=== PATIENT | male | born 1975 | race Caucasian/White ===

== ENCOUNTER 2018-11-27 06:45 | Emergency (ER) | payer MEDICAID, OTHER ==
[2018-11-27 07:17] VITALS: BP 158/96
--- NOTE | 2018-11-27 07:28 | EDM.PDOC ---
ED HPI GENERAL MEDICAL PROBLEM - General Chief Complaint: ENT Problem Stated Complaint: ABCESSED TOOTH Time Seen by Provider: 11/27/18 07:16 Source of Information: Reports: Patient History Limitations: Reports: No Limitations - History of Present Illness INITIAL COMMENTS - FREE TEXT/NARRATIVE: Patient presents with reports of a broken upper right molar and possible abscess. Reports that he broke the tooth several weeks ago and had tried to see the dentist. He was told they did not accept his insurance and was told to come to the ER. He denies fever, nausea, vomiting, chills. Some swelling to the left of his face. No other complaints today. Pain began yesterday but has improved today. Duration: Intermittent Location: Reports: Face Quality: Reports: Ache Severity: Mild Improves with: Reports: Medication Worsens with: Reports: Eating Associated Symptoms: Reports: No Other Symptoms Treatments DEDICATED [employer]: Reports: Acetaminophen, NSAIDS Left Upper Tooth/Teeth Pain Score (Numeric/FACES): 4 - Related Data Allergies Allergy/AdvReac Type Severity Reaction Status Date / Time hydrochlorothiazide Allergy Muscle Verified 11/27/18 07:07 Aches Home Meds: Home Meds metFORMIN HCl [Metformin HCl] 2,000 mg PO DAILY 07/14/16 [History] Gabapentin [Neurontin] 300 mg TID 11/27/18 [History] Insulin Glarg,Human.Rec.Analog [Lantus Solostar] 90 units DAILY 11/27/18 [ History] Liraglutide [Victoza] 1.8 mg DAILY 11/27/18 [History] amLODIPine Besylate [Amlodipine Besylate] 10 mg DAILY 11/27/18 [History] atorvaSTATin Calcium [Atorvastatin Calcium] 20 mg DAILY 11/27/18 [History] Past Medical History Cardiovascular History: Reports: High Cholesterol, Hypertension Neurological History: Reports: Neuropathy, Diabetic Endocrine/Metabolic History: Reports: Diabetes, Type II Social & Family History - Tobacco Use Smoking Status *Q: Current Every Day Smoker Years of Tobacco use: 26 Packs/Tins Daily: 1 - Recreational Drug Use Recreational Drug Use: No ED ROS ENT - Review of Systems Review Of Systems: See Below Constitutional: Reports: No Symptoms HEENT: Reports: Dental Pain Respiratory: Reports: No Symptoms Cardiovascular: Reports: No Symptoms Endocrine: Reports: No Symptoms GI/Abdominal: Reports: No Symptoms : Reports: No Symptoms Musculoskeletal: Reports: No Symptoms Skin: Reports: No Symptoms Neurological: Reports: No Symptoms Psychiatric: Reports: No Symptoms Hematologic/Lymphatic: Reports: No Symptoms Immunologic: Reports: No Symptoms ED EXAM, ENT - Physical Exam Exam: See Below Exam Limited By: No Limitations General Appearance: Alert, WD/WN, No Apparent Distress Eye Exam: Bilateral Eye: EOMI, Normal Inspection, PERRL Ears: Normal External Exam, Normal Canal, Hearing Grossly Normal, Normal TMs Nose: Normal Inspection, Normal Mucousa, No Blood Mouth/Throat: Dental Abcess (located at tooth fifteen) Head: Facial Swelling (left cheekbone) Neck: Normal Inspection, Supple, Non-Tender, Full Range of Motion Respiratory/Chest: No Respiratory Distress, Lungs Clear, Normal Breath Sounds, No Accessory Muscle Use, Chest Non-Tender Cardiovascular: Normal Peripheral Pulses, Regular Rate, Rhythm, No Edema, No Gallop, No JVD, No Murmur, No Rub GI/Abdominal: Normal Bowel Sounds, Soft, Non-Tender, No Organomegaly, No Distention, No Abnormal Bruit, No Mass Extremities: Normal Inspection, Normal Range of Motion, Non-Tender, No Pedal Edema, Normal Capillary Refill Neurological: Alert, Oriented, CN II-XII Intact, Normal Cognition, Normal Gait, Normal Reflexes, No Motor/Sensory Deficits Psychiatric: Normal Affect, Normal Mood Skin: Warm, Dry, Intact, Normal Color, No Rash Lymphatic: No Adenopathy Course - Vital Signs Last Recorded V/S: Last Vital Signs Temp 36.8 C 11/27/18 06:55 Pulse 80 11/27/18 06:55 Resp 16 11/27/18 06:55 BP 158/96 H 11/27/18 06:55 Pulse Ox 97 11/27/18 06:55 Departure - Departure Time of Disposition: 07:33 Disposition: Home, Self-Care 01 Condition: Good Clinical Impression: Dental abscess - Discharge Information *PRESCRIPTION DRUG MONITORING PROGRAM REVIEWED*: Not Applicable *COPY OF PRESCRIPTION DRUG MONITORING REPORT IN PATIENT CORA: Not Applicable Instructions: Dental Abscess, [id number], Amoxicillin; Clavulanic Acid tablets, Probiotics Referrals: Monica Burgos MD [Primary Care Provider] - Additional Instructions: Plan 1. Stay well hydrated 2. Take all of the Augmentin until the course is finished. Even if feeling better. Take 1 tablet twice a day for 10 days. 3. Take some probiotics or eat 1-2 servings of yogurt daily to prevent a bacterial infection of the intestines related to antibiotic use. 4. Try to go to [facility] in [place] next week. Every Tuesday they are available. With your infection, they likely won't do anything until this is cleared. So wait until next week to go in. 5. If not better in 5-7 days be seen in the clinic or ER to prevent spreading of the abscess. 6. Please call with any questions or concerns. - Problem List & Annotations (1) Dental abscess SNOMED Code(s): 352115098 Code(s): K04.7 - PERIAPICAL ABSCESS WITHOUT SINUS Status: Acute Priority : Low Current Visit: Yes - Problem List Review Problem List Initiated/Reviewed/Updated: Yes - Assessment/Plan Assessment:: dental abscess Plan: Plan 1. Stay well hydrated 2. Take all of the Augmentin until the course is finished. Even if feeling better. Take 1 tablet twice a day for 10 days. 3. Take some probiotics or eat 1-2 servings of yogurt daily to prevent a bacterial infection of the intestines related to antibiotic use. 4. Try to go to [facility] the [facility] gap in [place] next week. Every Tuesday they are available. With your infection, they likely won't do anything until this is cleared. So wait until next week to go in. 5. If not better in 5-7 days be seen in the clinic or ER to prevent spreading of the abscess. 6. Please call with any questions or concerns.
== END 2018-11-27 07:33 | disposition home or self-care (01) ==
LOC: VM.ED 06:45
DX: K04.7 Periapical abscess without sinus (principal); E78.00 Pure hypercholesterolemia, unspecified; I10 Essential (primary) hypertension; F17.210 Nicotine dependence, cigarettes, uncomplicated; Z79.84 Long term (current) use of oral hypoglycemic drugs; Z79.899 Other long term (current) drug therapy
CPT/HCPCS: 99282

== ENCOUNTER 2022-06-25 06:57 | Day surgery (SDC) | payer MEDICAID ==
[~2022-06-25 06:57] MED LIST: Lactated Ringers 1,000 ML IV SCH; Sodium Chloride 0.9% 10 ML Syringe FLUSH PRN
[2022-06-25] MEDS: Midazolam 1 MG/ML 2 ML SDV IVPUSH PRN ×2 (08:43→09:19)
[2022-06-25] MEDS ORDERED: fentaNYL 100 MCG/2 ML SDV ONE (10:37)
[2022-06-25] MEDS ORDERED: Propofol 200 MG/20 ML SDV ONE ×2 (10:37→10:52)
[2022-06-25 11:47] VITALS: BP 122/74; PULSE 68
[2022-06-25] MEDS ORDERED: Iopamidol 612 MG/ML 100 ML Bottle IVPUSH ONE (12:09)
== END 2022-06-25 13:13 | disposition home or self-care (01) ==
LOC: VM.SDS 06:57
PROVIDERS: ATTEND Student in an Organized Health Care Education/Training Program
DX: Z12.11 Encounter for screening for malignant neoplasm of colon (principal); D12.0 Benign neoplasm of cecum; K63.5 Polyp of colon; I10 Essential (primary) hypertension; E66.9 Obesity, unspecified; F41.9 Anxiety disorder, unspecified; F32.A Depression, unspecified; E11.42 Type 2 diabetes mellitus with diabetic polyneuropathy; F17.210 Nicotine dependence, cigarettes, uncomplicated; Z80.0 Family history of malignant neoplasm of digestive organs; Z88.8 Allergy status to other drugs, medicaments and biological substances; Z79.899 Other long term (current) drug therapy; Z68.41 Body mass index [BMI] 40.0-44.9, adult
CPT/HCPCS: 00812; 45380; 45385; 71260; 74177; 82378; 82565; 82947; J2250; J2704; J3010; J7120; Q9967